=== PATIENT | female | born 1990 | race Caucasian/White ===

== ENCOUNTER 2018-09-26 23:45 | Inpatient (IN) | payer OTHER ==
[~2018-09-26] VITALS: Ht 165.1 cm; Wt 127.0 kg
[2018-09-27 02:00] VITALS: BP 120/57; PULSE 77; RESP 18
[2018-09-27 02:03] VITALS: Ht 165.1 cm; Wt 127.0 kg
[2018-09-27] MEDS ORDERED: ONDANSETRON 4 MG INJ IV PRN ×2 (02:30→12:00)
[2018-09-27] MEDS ORDERED: ALBUTEROL/IPRATROPIUM (NEB) 3 ML AMP HHN PRN (02:30)
[2018-09-27] MEDS ORDERED: HYDROCODONE/APAP (5/325) TAB PO PRN (02:30)
[2018-09-27] MEDS ORDERED: NACL 0.9% 3 ML SYG IV SCH (02:30)
--- NOTE | 2018-09-27 02:41 | HP ---
Date/Time of Note Date/Time of Note DATE: 09/27/18 TIME: 02:38 Assessment/Plan VTE Prophylaxis Pharmacological prophylaxis: heparin Assessment/Plan Assessment/Plan 1. Meningitis, most likely viral -Isolation -Acyclovir, ceftriaxone and vancomycin -We will obtain culture results from LP that was done at outside facility -ID consult 2. Hypertension: BP within goal 3. History of gestational diabetes: Check A1c 4. History of migraine headache: PRN pain meds HPI/ROS Admit Date/Time Admit Date/Time Sep 27, 2018 at 01:39 Hx of Present Illness This is a 27-year-old morbidly obese female with a history of hypertension, migraine headache, gestational diabetes who initially presented on outside hospital complaining of headache and subjective fever. Headache is diffuse for the most part. She said she has not had a headache for a long time. Head CT at outside facility was negative for acute findings. LP consistent with meningitis with 300 WBCs with 90% lymphocytes only 3 RBCs. Gram stain without organism and culture pending. Patient was transferred to [facility] for insurance reasons. She had a temp of 100.7 at the outside facility. PMH/Family/Social Past Medical History Medications Current Medications IV Flush (NS 3 ml) 3 ml PER PROTOCOL IV ; Start 09/27/18 at 02:30; Status UNV Ondansetron HCl (Zofran Inj) 4 mg Q6H PRN IV NAUSEA AND/OR VOMITING; Start 09/27/18 at 02:30; Status UNV Acetaminophen (Tylenol Tab) 650 mg Q6H PRN PO PAIN LEVEL 1-3 OR FEVER; Start 09/27/18 at 02:30; Status UNV Acetaminophen/ Hydrocodone Bitart ([place] (5/325)) 1 tab Q6H PRN PO MODERATE PAIN LEVEL 4-6; Start 09/27/18 at 02:30; Status UNV Acetaminophen/ Hydrocodone Bitart ([place] (5/325)) 2 tab Q6H PRN PO SEVERE PAIN LEVEL 7-10; Start 09/27/18 at 02:30; Status UNV Albuterol/ Ipratropium (Duoneb) 3 ml Q2H RESP THERAPY PRN HHN SHORTNESS OF BREATH; Start 09/27/18 at 02:30; Status UNV Acyclovir 500 mg/ Dextrose 100 ml @ 100 mls/hr Q8 IVPB ; Start 09/27/18 at 06:00; Status UNV Ceftriaxone Sodium 50 ml @ 100 mls/hr DAILY IVPB ; Start 09/27/18 at 09:00; Status UNV Vancomycin HCl (Vanco Iv Per Pharmacy) VANCOMYCIN PER PHARMACY PER PROTOCOL XX ; Start 09/27/18 at 09:00; Status UNV Coded Allergies: No Known Drug Allergy (Verified Allergy, Unknown, 09/27/18) Social History Smoking Status: Never smoker Exam/Review of Systems Vital Signs Vitals Vital Signs Date Temp Pulse Resp B/P (MAP) Pulse Ox O2 O2 Flow FiO2 Time Delivery Rate 09/27/18 98.0 77 18 120/57 93 Room Air 02:00 (78) Exam Exam Constitutional: other (no acute distress) Head: normocephalic Respiratory: other (slight decreased at bases) Cardiovascular: regular rate and rhythm Gastrointestinal: soft Extremities: normal pulses PMH/Family/Social Past Medical History Medical History: other (see hpi) Coded Allergies: No Known Drug Allergy (Verified Allergy, Unknown, 05/12/16) Past Surgical History Past Surgical Hx: other (see hpi) Family History Significant Family History: no pertinent family hx Social History Alcohol Use: other Smoking Status: Unknown if ever smoked Drug Use: other MEENU JAIMES MD Sep 27, 2018 02:41
[2018-09-27] MEDS ORDERED: VANCOMYCIN 1.5 GM in SOD CHLORIDE 0.9% 250 ML IVPB ONE (03:00)
[2018-09-27] MEDS: ACYCLOVIR 500 MG in DEXTROSE 5% 100 ML IVPB SCH ×2 (05:03→13:15)
[2018-09-27 08:16] VITALS: BP 91/54; PULSE 56; RESP 20
[2018-09-27] MEDS ORDERED: VANCOMYCIN IV PER PHARMACY XX SCH (09:00)
[2018-09-27] MEDS ORDERED: CEFTRIAXONE 1 GM/50 ML (PMX) 50 ML IVPB SCH (09:00)
[2018-09-27] MEDS: CEFTRIAXONE 2 GM/NS 50 ML IVPB SCH ×2 (09:41→20:40)
[2018-09-27] MEDS: ACETAMINOPHEN 325 MG TAB PO PRN ×2 (09:47→17:05)
[2018-09-27 10:00] VITALS: BP 96/58; PULSE 62
--- NOTE | 2018-09-27 11:43 | PN ---
Date/Time of Note Date/Time of Note DATE: 09/27/18 TIME: 11:40 Assessment/Plan VTE Prophylaxis Risk score (from Nsg)>0 risk: 2 SCD applied (from Ns): Yes SCD contraindicated: low risk/ambulating Pharmacological prophylaxis: NA/contraindicated Pharm contraindication: low risk/ambulating Lines/Catheters IV Catheter Type (from [facility]): Saline Lock Assessment/Plan Hospital Course Assessment and plan 1. Acute headache low-grade fever, mild stable rule out meningitis. I believe LP was done in [place] [facility]. I will follow-up on tests. 2. Hypertension 3. Metabolic syndrome, gestational diabetes, overweight hypertension 4. Migraines? Subjective: Few days of headache. Worse yesterday. Achy feels like her around her head. Not described as pounding. Not really uncomfortable with light or sound. +1 or 2 episodes of nausea vomiting. No hematemesis. No bug bites travel sinus upper respiratory issues. No earaches. No focal deficits loss of speech or vision. Does not take OCPs. No head injury. Last headache was about 5 years ago and was told she has and she thinks it was due to migraines. She does not get headaches that often. This headache is fairly similar but more ongoing for headache 5 years ago. Present he feels a little better. No neck stiffness or rigidity Objective: Vital signs stable Physical exam No pallor icterus adenopathy sinus tenderness or droop. No tragus. No neck tenderness Regular no murmur gallop Clear Benign No edema No appreciated Kerning's/ Babinski sign Result Diagram: 09/27/18 0854 09/27/18 0854 Results 24hrs Laboratory Tests Test 09/27/18 03:22 09/27/18 08:54 Serum HCG, Qualitative NEGATIVE White Blood Count 7.2 Red Blood Count 4.20 Hemoglobin 12.7 Hematocrit 39.3 Mean Corpuscular Volume 93.6 Mean Corpuscular Hemoglobin 30.2 Mean Corpuscular Hemoglobin Concent 32.3 Red Cell Distribution Width 13.2 Platelet Count 255 Mean Platelet Volume 11.1 H Immature Granulocytes % 0.300 Neutrophils % 55.1 Lymphocytes % 37.0 Monocytes % 5.8 Eosinophils % 1.4 Basophils % 0.4 Nucleated Red Blood Cells % 0.0 Immature Granulocytes # 0.020 Neutrophils # 4.0 Lymphocytes # 2.7 Monocytes # 0.4 Eosinophils # 0.1 Basophils # 0.0 Nucleated Red Blood Cells # 0.0 Sodium Level 140 Potassium Level 3.9 Chloride Level 105 Carbon Dioxide Level 27 Anion Gap 8 Blood Urea Nitrogen 9 Creatinine 0.55 Est Glomerular Filtrat Rate mL/min > 60 Glucose Level 120 Hemoglobin A1c 5.8 Calcium Level 8.9 Total Bilirubin 0.3 Direct Bilirubin 0.00 Indirect Bilirubin 0.3 Aspartate Amino Transf (AST/SGOT) 20 Alanine Aminotransferase (ALT/SGPT) 24 Alkaline Phosphatase 83 Total Protein 7.8 Albumin 4.0 Globulin 3.80 H Albumin/Globulin Ratio 1.05 Exam/Review of Systems Vital Signs Vitals Vital Signs Date Temp Pulse Resp B/P (MAP) Pulse Ox O2 O2 Flow FiO2 Time Delivery Rate 09/27/18 62 96/58 (71) 10:00 09/27/18 97.8 20 97 Room Air 08:16 Intake and Output 09/26/18 09/26/18 09/27/18 1515:00 23:00 07:00 IntakeIntake Total 100 ml BalanceBalance 100 ml Medications Medications Current Medications IV Flush (NS 3 ml) 3 ml PER PROTOCOL IV ; Start 09/27/18 at 02:30 Ondansetron HCl (Zofran Inj) 4 mg Q6H PRN IV NAUSEA AND/OR VOMITING; Start 09/27/18 at 02:30 Acetaminophen (Tylenol Tab) 650 mg Q6H PRN PO PAIN LEVEL 1-3 OR FEVER Last administered on 09/27/18at 09:47; Admin Dose 650 MG; Start 09/27/18 at 02:30 Acetaminophen/ Hydrocodone Bitart ([place] (5/325)) 1 tab Q6H PRN PO MODERATE PAIN LEVEL 4-6; Start 09/27/18 at 02:30 Acetaminophen/ Hydrocodone Bitart ([place] (5/325)) 2 tab Q6H PRN PO SEVERE PAIN LEVEL 7-10; Start 09/27/18 at 02:30 Albuterol/ Ipratropium (Duoneb) 3 ml Q2H RESP THERAPY PRN HHN SHORTNESS OF BREATH; Start 09/27/18 at 02:30 Acyclovir 500 mg/ Dextrose 100 ml @ 100 mls/hr Q8 IVPB Last administered on 09/27/18at 05:03; Admin Dose 100 MLS/HR; Start 09/27/18 at 06:00 Vancomycin HCl (Vanco Iv Per Pharmacy) VANCOMYCIN PER PHARMACY PER PROTOCOL XX ; Start 09/27/18 at 09:00 Ceftriaxone Sodium 50 ml @ 100 mls/hr Q12H IVPB Last administered on 09/27/18at 09:41; Admin Dose 100 MLS/HR; Start 09/27/18 at 09:00 AMPARO CLEANING MD Sep 27, 2018 11:43
[2018-09-27] MEDS ORDERED: DOCUSATE SODIUM 100 MG CAP PO PRN (12:00)
[2018-09-27 14:41] VITALS: BP 104/54; PULSE 89; RESP 20
[2018-09-27] MEDS: VANCOMYCIN 1.25 GM in SOD CHLORIDE 0.9% 250 ML IVPB SCH ×2 (15:34→23:04)
[2018-09-27 19:46] VITALS: BP 113/67; PULSE 93; RESP 17
--- NOTE | 2018-09-27 21:21 | CONS ---
DATE OF ADMISSION: 09/27/2018 DATE OF CONSULTATION: 09/27/2018 REASON FOR CONSULTATION: Antibiotic management. HISTORY OF PRESENT ILLNESS: Farhana Perez is a 27-year-old female who has numerous problems and comes in with symptoms of meningitis. Her problems include: 1. Morbid obesity. 2. Hypertension. 3. Migraine headaches. 4. Gestational diabetes. The patient presented from an outside hospital complaining of headaches and subjective fever. The he adache was diffuse. CT scan at the outside facility was negative. showed 300 white cells with 90% lymphocytes only 3 RBCs. Gram stain without organisms. Cultures pending. She was transferred to [facility] with a temperature of 100.7. On admission, she was afebrile. She wa s placed on vancomycin and ceftriaxone. White count 7.2, H and H of 12.7 and 39.3, platelet count 25 5,000. Results of her blood work were unremarkable. She was started on acyclovir, Rocephin in the [facility]. PAST MEDICAL HISTORY: as outlined. FAMILY HISTORY: Noncontributory. SOCIAL HISTORY: She does not smoke, drink or abuse drugs. ALLERGIES: NONE TO PENICILLIN, SULFA OR FOODS. MEDICATIONS: Per chart. REVIEW OF SYSTEMS: As per HPI. PHYSICAL EXAMINATION: GENERAL: The patient is a morbidly obese female who is awake, responsive, in no acute distress. VITAL SIGNS: Stable. She is afebrile. SKIN: Without generalized rash. HEENT: Head normocephalic, atraumatic, within normal limits. NECK: Supple, with no meningismus. BACK: There is slight pain on flexion, but no stiffness. CHEST: Decreased breath sounds at the bases. HEART: Without murmur or gallop. ABDOMEN: Soft, nontender, without organosplenomegaly or masses. EXTREMITIES: Without cyanosis, clubbing, or edema. RECTAL AND GENITAL: Deferred. NEUROLOGIC: The patient is alert and oriented x3. Cranial nerves grossly intact. Sensory and motor within normal limits. No focal neurological abnormality. IMPRESSION AND PLAN: The patient has a viral meningitis. I doubt that she has anything related to h erpes. She is currently on Acyclovir, vancomycin and ceftriaxone. We will await the culture reports . I will dictate my findings to the hospitalist. Dictated By: JEFFERY VAUGHN MD, JD/MACK Conf#: [id number] [facility]#: [id number] CC: MEENU JAIMES MD;*End*
[2018-09-27] MEDS: DEXTROSE 5% IVPB SCH (21:33)
[2018-09-27] MEDS: ACYCLOVIR IVPB SCH (21:33)
[2018-09-28] MEDS: HYDROCODONE/APAP (5/325) TAB PO PRN ×3 (00:40→20:27)
[2018-09-28 01:54] VITALS: BP 98/51; PULSE 73; RESP 18
[2018-09-28] MEDS: DEXTROSE 5% IVPB SCH ×3 (05:39→22:10)
[2018-09-28] MEDS: ACYCLOVIR IVPB SCH ×3 (05:39→22:10)
[2018-09-28] MEDS: VANCOMYCIN 1.25 GM in SOD CHLORIDE 0.9% 250 ML IVPB SCH ×3 (07:24→23:54)
[2018-09-28 07:25] VITALS: BP 96/54; PULSE 62; RESP 16
[2018-09-28] MEDS: CEFTRIAXONE 2 GM/NS 50 ML IVPB SCH ×2 (10:27→20:27)
[2018-09-28 11:14] VITALS: BP 142/80; PULSE 70
--- NOTE | 2018-09-28 13:02 | PN ---
Date/Time of Note Date/Time of Note DATE: 09/28/18 TIME: 13:01 Assessment/Plan VTE Prophylaxis Risk score (from Nsg)>0 risk: 2 SCD applied (from Nsg): Yes SCD contraindicated: low risk/ambulating Pharmacological prophylaxis: LMWH Lines/Catheters IV Catheter Type (from Nrsg): Saline Lock Assessment/Plan Hospital Course Assessment and plan 1. Acute headache low-grade fever, mild stable treat viral meningitis. I believe LPCT brain was done in [place] [facility]. I will follow-up on tests. 2. Hypertension 3. Metabolic syndrome, gestational diabetes, overweight hypertension 4. Migraines? Subjective: /3 few days of headache. Worse yesterday. Achy feels like her around her head. Not described as pounding. Not really uncomfortable with light or sound. +1 or 2 episodes of nausea vomiting. No hematemesis. No bug bites travel sinus upper respiratory issues. No earaches. No focal deficits loss of speech or vision. Does not take OCPs. No head injury. Last headache was about 5 years ago and was told she has and she thinks it was due to migraines. She does not get headaches that often. This headache is fairly similar but more ongoing for headache 5 years ago. Present he feels a little better. No neck stiffness or rigidity 09/28: Headache about the same. No loss of speech vision fever nausea vomiting or neck rigidity. Objective: Vital signs stable Physical exam No pallor icterus adenopathy sinus tenderness or droop. No tragus. No neck tenderness Regular no murmur gallop Clear Benign No edema No appreciated Kerning's/ Babinski sign Result Diagram: 09/28/18 0449 09/28/189 Results 24hrs Laboratory Tests Test 09/28/18 04:49 White Blood Count 7.0 Red Blood Count 3.98 L Hemoglobin 12.1 Hematocrit 36.1 L Mean Corpuscular Volume 90.7 Mean Corpuscular Hemoglobin 30.4 Mean Corpuscular Hemoglobin Concent 33.5 Red Cell Distribution Width 13.1 Platelet Count 240 Mean Platelet Volume 10.9 H Immature Granulocytes % 0.300 Neutrophils % 56.8 Lymphocytes % 34.6 Monocytes % 5.9 Eosinophils % 2.0 Basophils % 0.4 Nucleated Red Blood Cells % 0.0 Immature Granulocytes # 0.020 Neutrophils # 4.0 Lymphocytes # 2.4 Monocytes # 0.4 Eosinophils # 0.1 Basophils # 0.0 Nucleated Red Blood Cells # 0.0 Prothrombin Time 14.2 Prothrombin Time Ratio 1.1 INR International Normalized Ratio 1.09 Sodium Level 141 Potassium Level 4.2 Chloride Level 106 Carbon Dioxide Level 27 Anion Gap 8 Blood Urea Nitrogen 11 Creatinine 0.62 Est Glomerular Filtrat Rate mL/min > 60 Glucose Level 111 Calcium Level 8.6 Phosphorus Level 3.4 Magnesium Level 2.1 Thyroid Stimulating Hormone (TSH) 2.480 Exam/Review of Systems Vital Signs Vitals Vital Signs Date Temp Pulse Resp B/P (MAP) Pulse Ox O2 O2 Flow FiO2 Time Delivery Rate 09/28/18 70 142/80 11:14 (100) 09/28/18 99.1 16 92 Room Air 07:25 Intake and Output 09/27/18 09/27/18 09/28/18 1515:00 23:00 07:00 IntakeIntake Total 1180 ml 300 ml 850 ml BalanceBalance 1180 ml 300 ml 850 ml Medications Medications Current Medications IV Flush (NS 3 ml) 3 ml PER PROTOCOL IV ; Start 09/27/18 at 02:30 Acetaminophen (Tylenol Tab) 650 mg Q6H PRN PO PAIN LEVEL 1-3 OR FEVER Last a dministered on 09/27/18at 17:05; Admin Dose 650 MG; Start 09/27/18 at 02:30 Acetaminophen/ Hydrocodone Bitart ([place] (5/325)) 1 tab Q6H PRN PO MODERATE PAIN LEVEL 4-6 Last administered on 09/28/18at 10:28; Admin Dose 1 TAB; Start 09/27/18 at 02:30 Acetaminophen/ Hydrocodone Bitart ([place] (5/325)) 2 tab Q6H PRN PO SEVERE PAIN LEVEL 7-10; Start 09/27/18 at 02:30 Albuterol/ Ipratropium (Duoneb) 3 ml Q2H RESP THERAPY PRN HHN SHORTNESS OF BREATH; Start 09/27/18 at 02:30 Vancomycin HCl (Vanco Iv Per Pharmacy) VANCOMYCIN PER PHARMACY PER PROTOCOL XX ; Start 09/27/18 at 09:00 Ceftriaxone Sodium 50 ml @ 100 mls/hr Q12H IVPB Last administered on 09/28/18at 10:27; Admin Dose 100 MLS/HR; Start 09/27/18 at 09:00 Ondansetron HCl (Zofran Inj) 4 mg Q4H PRN IV NAUSEA AND/OR VOMITING; Start 09/27/18 at 12:00 Enoxaparin Sodium (Lovenox) 40 mg DAILY SC ; Start 09/30/18 at 09:00 Docusate Sodium (Colace) 200 mg BID PRN PO CONSTIPATION; Start 09/27/18 at 12:00 Clonidine (Catapres) 0.1 mg Q4H PRN PO ELEVATED SYSTOLIC BP; Start 09/27/18 at 12:00 Vancomycin HCl 1.25 gm/Sodium Chloride 250 ml @ 83.333 mls/ hr Q8H IVPB Last administered on 09/28/18at 07:24; Admin Dose 83.333 MLS/HR; Start 09/27/18 at 14:30 Miscellaneous Information (*Rx Drug Level Order Reminder*) 1 ONCE ONCE XX ; Start 09/28/18 at 13:30; Stop 09/28/18 at 13:31 Acyclovir 850 mg/ Dextrose/Water 150 ml @ 100 mls/hr Q8 IVPB Last administered on 09/28/18at 05:39; Admin Dose 100 MLS/HR; Start 09/27/18 at 22:00 AMPARO CLEANING MD Sep 28, 2018 13:02
[2018-09-28 14:30] VITALS: BP 128/66; PULSE 83; RESP 20
[2018-09-28] MEDS: ACETAMINOPHEN 325 MG TAB PO PRN (15:16)
--- NOTE | 2018-09-28 15:52 | CONS ---
Date/Time of Note Date/Time of Note DATE: 09/28/18 TIME: 15:51 Assessment/Plan Assessment/Plan Hospital Course Patient is alert feels better still with intermittent headaches she is in no distress, no fevers WBC 7, no shift no bands BUN 11 creatinine 0.62 Antimicrobials: Acyclovir, Vanco, Rocephin Physical examination: Obese well-developed middle-aged woman who is alert in no distress. Head atraumatic normocephalic sclera nonicteric neck is supple chest rise symmetrical breath sounds clear. Heart: S1-S2 abdomen soft bowel sounds present extremities without cyanosis Assessment: 1. Viral meningitis 2. Morbid obesity 3. Hypertension Plan: Patient is doing better we will continue her on current antibiotics, and follow final cultures Result Diagram: 09/28/1844809/28/18448 Results 24hrs Laboratory Tests Test 09/28/18 04:49 09/28/18 13:25 White Blood Count 7.0 Red Blood Count 3.98 L Hemoglobin 12.1 Hematocrit 36.1 L Mean Corpuscular Volume 90.7 Mean Corpuscular Hemoglobin 30.4 Mean Corpuscular Hemoglobin Concent 33.5 Red Cell Distribution Width 13.1 Platelet Count 240 Mean Platelet Volume 10.9 H Immature Granulocytes % 0.300 Neutrophils % 56.8 Lymphocytes % 34.6 Monocytes % 5.9 Eosinophils % 2.0 Basophils % 0.4 Nucleated Red Blood Cells % 0.0 Immature Granulocytes # 0.020 Neutrophils # 4.0 Lymphocytes # 2.4 Monocytes # 0.4 Eosinophils # 0.1 Basophils # 0.0 Nucleated Red Blood Cells # 0.0 Prothrombin Time 14.2 Prothrombin Time Ratio 1.1 INR International Normalized Ratio 1.09 Sodium Level 141 Potassium Level 4.2 Chloride Level 106 Carbon Dioxide Level 27 Anion Gap 8 Blood Urea Nitrogen 11 Creatinine 0.62 Est Glomerular Filtrat Rate mL/min > 60 Glucose Level 111 Calcium Level 8.6 Phosphorus Level 3.4 Magnesium Level 2.1 Thyroid Stimulating Hormone (TSH) 2.480 Vancomycin Level Trough 14.1 Consultation Date/Type/Reason Admit Date/Time Sep 27, 2018 at 01:39 Initial Consult Date Type of Consult id Exam/Review of Systems Vital Signs Vitals Vital Signs Date Temp Pulse Resp B/P (MAP) Pulse Ox O2 O2 Flow FiO2 Time Delivery Rate 09/28/18 98.7 83 20 128/66 95 Room Air 14:30 (86) Intake and Output 09/27/18 09/27/18 09/28/18 1515:00 23:00 07:00 IntakeIntake Total 1180 ml 300 ml 850 ml BalanceBalance 1180 ml 300 ml 850 ml Medications Medications Current Medications IV Flush (NS 3 ml) 3 ml PER PROTOCOL IV ; Start 09/27/18 at 02:30 Acetaminophen (Tylenol Tab) 650 mg Q6H PRN PO PAIN LEVEL 1-3 OR FEVER Last administered on 09/28/18at 15:16; Admin Dose 650 MG; Start 09/27/18 at 02:30 Acetaminophen/ Hydrocodone Bitart ([place] (5/325)) 1 tab Q6H PRN PO MODERATE PAIN LEVEL 4-6 Last administered on 09/28/18at 10:28; Admin Dose 1 TAB; Start 09/27/18 at 02:30 Acetaminophen/ Hydrocodone Bitart ([place] (5/325)) 2 tab Q6H PRN PO SEVERE PAIN LEVEL 7-10; Start 09/27/18 at 02:30 Albuterol/ Ipratropium (Duoneb) 3 ml Q2H RESP THERAPY PRN HHN SHORTNESS OF BREATH; Start 09/27/18 at 02:30 Vancomycin HCl (Vanco Iv Per Pharmacy) VANCOMYCIN PER PHARMACY PER PROTOCOL XX ; Start 09/27/18 at 09:00 Ceftriaxone Sodium 50 ml @ 100 mls/hr Q12H IVPB Last administered on 09/28/18at 10:27; Admin Dose 100 MLS/HR; Start 09/27/18 at 09:00 Ondansetron HCl (Zofran Inj) 4 mg Q4H PRN IV NAUSEA AND/OR VOMITING; Start 09/27/18 at 12:00 Enoxaparin Sodium (Lovenox) 40 mg DAILY SC ; Start 09/30/18 at 09:00 Docusate Sodium (Colace) 200 mg BID PRN PO CONSTIPATION; Start 09/27/18 at 12:00 Clonidine (Catapres) 0.1 mg Q4H PRN PO ELEVATED SYSTOLIC BP; Start 09/27/18 at 12:00 Vancomycin HCl 1.25 gm/Sodium Chloride 250 ml @ 83.333 mls/ hr Q8H IVPB Last administered on 09/28/18at 15:17; Admin Dose 83.333 MLS/HR; Start 09/27/18 at 14:30 Acyclovir 850 mg/ Dextrose/Water 150 ml @ 100 mls/hr Q8 IVPB Last administered on 09/28/18at 13:20; Admin Dose 100 MLS/HR; Start 09/27/18 at 22:00 JAQUELINE SALMON NP Sep 28, 2018 15:52
[2018-09-28 20:10] VITALS: BP 111/73; PULSE 74; RESP 18
[2018-09-29 02:10] VITALS: BP 109/69; PULSE 78; RESP 18
[2018-09-29] MEDS: DEXTROSE 5% IVPB SCH ×3 (05:17→22:25)
[2018-09-29] MEDS: ACYCLOVIR IVPB SCH ×3 (05:17→22:25)
[2018-09-29] MEDS: VANCOMYCIN 1.25 GM in SOD CHLORIDE 0.9% 250 ML IVPB SCH ×2 (05:17→14:40)
[2018-09-29 08:12] VITALS: BP 105/72; PULSE 72; RESP 16
[2018-09-29] MEDS: HYDROCODONE/APAP (5/325) TAB PO PRN ×2 (08:59→18:35)
[2018-09-29] MEDS: CEFTRIAXONE 2 GM/NS 50 ML IVPB SCH ×2 (10:17→20:34)
[2018-09-29 14:23] VITALS: BP 117/73; PULSE 70; RESP 18
--- NOTE | 2018-09-29 17:21 | PN ---
Date/Time of Note Date/Time of Note DATE: 09/29/18 TIME: 17:20 Assessment/Plan VTE Prophylaxis Risk score (from Nsg)>0 risk: 2 SCD applied (from Nsg): Yes SCD contraindicated: low risk/ambulating Pharmacological prophylaxis: LMWH Lines/Catheters IV Catheter Type (from Nrsg): Saline Lock Assessment/Plan Hospital Course Assessment and plan 1. Acute headache/ low-grade fever, stable treat viral meningitis. I believe LPCT brain was done in [place] [facility]. I will follow-up on tests. 2. Hypertension 3. Metabolic syndrome, gestational diabetes, overweight hypertension 4. Migraines? Subjective: /3 few days of headache. Worse yesterday. Achy feels like her around her head. Not described as pounding. Not really uncomfortable with light or sound. +1 or 2 episodes of nausea vomiting. No hematemesis. No bug bites travel sinus upper respiratory issues. No earaches. No focal deficits loss of speech or vision. Does not take OCPs. No head injury. Last headache was about 5 years ago and was told she has and she thinks it was due to migraines. She does not get headaches that often. This headache is fairly similar but more ongoing for headache 5 years ago. Present he feels a little better. No neck stiffness or rigidity 09/28: Headache about the same. No loss of speech vision fever nausea vomiting or neck rigidity. 09/29: Feels much better. Now has dysuria constipation. Objective: Vital signs stable Physical exam No pallor icterus adenopathy sinus tenderness or droop. No tragus. No neck tenderness Regular no murmur gallop Clear Benign No edema No appreciated Kerning's/ Babinski sign Result Diagram: 09/28/18 0449 09/28/18 044 Exam/Review of Systems Vital Signs Vitals Vital Signs Date Temp Pulse Resp B/P (MAP) Pulse Ox O2 O2 Flow FiO2 Time Delivery Rate 09/29/18 98.3 70 18 117/73 98 14:23 (88) 09/28/18 Room Air 14:30 Intake and Output 09/28/18 09/28/18 09/29/18 1515:00 23:00 07:00 IntakeIntake Total 1360 ml 1010 ml 790 ml BalanceBalance 1360 ml 1010 ml 790 ml Medications Medications Current Medications IV Flush (NS 3 ml) 3 ml PER PROTOCOL IV ; Start 09/27/18 at 02:30 Acetaminophen (Tylenol Tab) 650 mg Q6H PRN PO PAIN LEVEL 1-3 OR FEVER Last administered on 09/28/18 15:16; Admin Dose 650 MG; Start 09/27/18 at 02:30 Acetaminophen/ Hydrocodone Bitart ([place] (5/325)) 1 tab Q6H PRN PO MODERATE PAIN LEVEL 4-6 Last administered on 09/29/18 08:59; Admin Dose 1 TAB; Start 09/27/18 at 02:30 Acetaminophen/ Hydrocodone Bitart ([place] (5/325)) 2 tab Q6H PRN PO SEVERE PAIN LEVEL 7-10; Start 09/27/18 at 02:30 Albuterol/ Ipratropium (Duoneb) 3 ml Q2H RESP THERAPY PRN HHN SHORTNESS OF BREATH; Start 09/27/18 at 02:30 Vancomycin HCl (Vanco Iv Per Pharmacy) VANCOMYCIN PER PHARMACY PER PROTOCOL XX ; Start 09/27/18 at 09:00 Ceftriaxone Sodium 50 ml @ 100 mls/hr Q12H IVPB Last administered on 09/29/18 10:17; Admin Dose 100 MLS/HR; Start 09/27/18 at 09:00 Ondansetron HCl (Zofran Inj) 4 mg Q4H PRN IV NAUSEA AND/OR VOMITING Last administered on 09/28/18 19:10; Admin Dose 4 MG; Start 09/27/18 at 12:00 Enoxaparin Sodium (Lovenox) 40 mg DAILY SC ; Start 09/30/18 at 09:00 Docusate Sodium (Colace) 200 mg BID PRN PO CONSTIPATION; Start 09/27/18 at 12:00 Clonidine (Catapres) 0.1 mg Q4H PRN PO ELEVATED SYSTOLIC BP; Start 09/27/18 at 12:00 Vancomycin HCl 1.25 gm/Sodium Chloride 250 ml @ 83.333 mls/ hr Q8H IVPB Last administered on 09/29/18 14:40; Admin Dose 83.333 MLS/HR; Start 09/27/18 at 14:30 Acyclovir 850 mg/ Dextrose/Water 150 ml @ 100 mls/hr Q8 IVPB Last administered on 1/5/19at 14:40; Admin Dose 100 MLS/HR; Start 09/27/18 at 22:00 AMPARO CLEANING MD Sep 29, 2018 17:21
--- NOTE | 2018-09-29 19:19 | CONS ---
Date/Time of Note Date/Time of Note DATE: 09/29/18 TIME: 19:18 Assessment/Plan Assessment/Plan Hospital Course Patient is alert feels better, no fevers Antimicrobials: Acyclovir, Vanco, Rocephin Physical examination: Obese well-developed middle-aged woman who is alert in no distress. Head atraumatic normocephalic sclera nonicteric neck is supple chest rise symmetrical breath sounds clear. Heart: S1-S2 abdomen soft bowel sounds present extremities without cyanosis Assessment: 1. Viral meningitis 2. Morbid obesity 3. Hypertension Plan: Patient is doing better, continue present care, await for CSF cx's from another facility, ok to dc isolation Result Diagram: 09/28/18 0449 09/28/18 0449 Consultation Date/Type/Reason Admit Date/Time Sep 27, 2018 at 01:39 Initial Consult Date Type of Consult id Exam/Review of Systems Vital Signs Vitals Vital Signs Date Temp Pulse Resp B/P (MAP) Pulse Ox O2 O2 Flow FiO2 Time Delivery Rate 09/29/18 98.3 70 18 117/73 98 14:23 (88) 09/28/18 Room Air 14:30 Intake and Output 09/28/18 09/28/18 09/29/18 1515:00 23:00 07:00 IntakeIntake Total 1360 ml 1010 ml 790 ml BalanceBalance 1360 ml 1010 ml 790 ml Medications Medications Current Medications IV Flush (NS 3 ml) 3 ml PER PROTOCOL IV ; Start 09/27/18 at 02:30 Acetaminophen (Tylenol Tab) 650 mg Q6H PRN PO PAIN LEVEL 1-3 OR FEVER Last administered on 09/28/18at 15:16; Admin Dose 650 MG; Start 09/27/18 at 02:30 Acetaminophen/ Hydrocodone Bitart (Amelia (5/325)) 1 tab Q6H PRN PO MODERATE PAIN LEVEL 4-6 Last administered on 09/29/18at 18:35; Admin Dose 1 TAB; Start 09/27/18 at 02:30 Acetaminophen/ Hydrocodone Bitart (Amelia (5/325)) 2 tab Q6H PRN PO SEVERE PAIN LEVEL 7-10; Start 09/27/18 at 02:30 Albuterol/ Ipratropium (Duoneb) 3 ml Q2H RESP THERAPY PRN HHN SHORTNESS OF MACK ATH; Start 09/27/18 at 02:30 Vancomycin HCl (Vanco Iv Per Pharmacy) VANCOMYCIN PER PHARMACY PER PROTOCOL XX ; Start 09/27/18 at 09:00 Ceftriaxone Sodium 50 ml @ 100 mls/hr Q12H IVPB Last administered on 09/29/18at 10:17; Admin Dose 100 MLS/HR; Start 09/27/18 at 09:00 Ondansetron HCl (Zofran Inj) 4 mg Q4H PRN IV NAUSEA AND/OR VOMITING Last administered on 09/28/18at 19:10; Admin Dose 4 MG; Start 09/27/18 at 12:00 Enoxaparin Sodium (Lovenox) 40 mg DAILY SC ; Start 09/30/18 at 09:00 Docusate Sodium (Colace) 200 mg BID PRN PO CONSTIPATION; Start 09/27/18 at 12:00 Clonidine (Catapres) 0.1 mg Q4H PRN PO ELEVATED SYSTOLIC BP; Start 09/27/18 at 12:00 Vancomycin HCl 1.25 gm/Sodium Chloride 250 ml @ 83.333 mls/ hr Q8H IVPB Last administered on 09/29/18at 14:40; Admin Dose 83.333 MLS/HR; Start 09/27/18 at 14:30 Acyclovir 850 mg/ Dextrose/Water 150 ml @ 100 mls/hr Q8 IVPB Last administered on 09/29/18at 14:40; Admin Dose 100 MLS/HR; Start 09/27/18 at 22:00 JAQUELINE SALMON NP Sep 29, 2018 19:19
[2018-09-29 20:00] VITALS: BP 98/53; PULSE 72; RESP 18
[2018-09-30] MEDS: HYDROCODONE/APAP (5/325) TAB PO PRN (00:41)
[2018-09-30] MEDS: VANCOMYCIN 1.25 GM in SOD CHLORIDE 0.9% 250 ML IVPB SCH ×2 (00:41→05:25)
[2018-09-30 02:00] VITALS: BP 90/51; PULSE 66; RESP 18
[2018-09-30] MEDS: DEXTROSE 5% IVPB SCH (05:26)
[2018-09-30] MEDS: ACYCLOVIR IVPB SCH (05:26)
[2018-09-30 08:41] VITALS: BP 125/65; PULSE 58; RESP 18
[2018-09-30] MEDS ORDERED: ENOXAPARIN 40 MG/0.4 ML SYG SC SCH (09:00)
[2018-09-30] MEDS: CEFTRIAXONE 2 GM/NS 50 ML IVPB SCH (11:48)
--- NOTE | 2018-09-30 12:10 | CONS ---
Date/Time of Note Date/Time of Note DATE: 09/30/18 TIME: 12:03 Assessment/Plan Assessment/Plan Result Diagram: 09/28/18 0449 09/28/18 0449 Consultation Date/Type/Reason Admit Date/Time Sep 27, 2018 at 01:39 Initial Consult Date SUBJECTIVE: 27 y/o female being in isolation room treating for viral meningitis. Sleepy today. No fevers. VS: stable T:98.6 LABS: Reviewed. none today MICROBIOLOGY: blood cultures are negative x2. Antimicrobials: Acyclovir, Vanco, Rocephin Physical examination: GEN: Obese well-developed middle-aged woman who is alert in no distress. HENT: atraumatic normocephalic sclera nonicteric neck is supple CHEST: rise is symmetrical, breath sounds clear. HEART: S1-S2 ABDOMEN: soft bowel sounds present EXT: no cyanosis Assessment: 1. Viral meningitis 2. Morbid obesity 3. Hypertension Plan: Patient is gradually improving. Ok to dc isolation. Final herpes culture is pending. Possible D/C planning with PO Acyclovir. D/W Dr. Wick Exam/Review of Systems Vital Signs Vitals Vital Signs Date Temp Pulse Resp B/P (MAP) Pulse Ox O2 O2 Flow FiO2 Time Delivery Rate 09/30/18 98.6 58 18 125/65 95 08:41 (85) 09/28/18 Room Air 14:30 Intake and Output 09/29/18 09/29/18 09/30/18 1515:00 23:00 07:00 IntakeIntake Total 600 ml 500 ml 850 ml BalanceBalance 600 ml 500 ml 850 ml Medications Medications Current Medications IV Flush (NS 3 ml) 3 ml PER PROTOCOL IV ; Start 09/27/18 at 02:30 Acetaminophen (Tylenol Tab) 650 mg Q6H PRN PO PAIN LEVEL 1-3 OR FEVER Last administered on 09/28/18at 15:16; Admin Dose 650 MG; Start 09/27/18 at 02:30 Acetaminophen/ Hydrocodone Bitart (Burney (5/325)) 1 tab Q6H PRN PO MODERATE PAIN LEVEL 4-6 Last administered on 09/30/18at 00:41; Admin Dose 1 TAB; Start 09/27/18 at 02:30 Acetaminophen/ Hydrocodone Bitart (Burney (5/325)) 2 tab Q6H PRN PO SEVERE PAIN LEVEL 7-10; Start 09/27/18 at 02:30 Albuterol/ Ipratropium (Duoneb) 3 ml Q2H RESP THERAPY PRN HHN SHORTNESS OF BREATH; Start 09/27/18 at 02:30 Vancomycin HCl (Vanco Iv Per Pharmacy) VANCOMYCIN PER PHARMACY PER PROTOCOL XX ; Start 09/27/18 at 09:00 Ceftriaxone Sodium 50 ml @ 100 mls/hr Q12H IVPB Last administered on 09/30/18at 11:48; Admin Dose 100 MLS/HR; Start 09/27/18 at 09:00 Ondansetron HCl (Zofran Inj) 4 mg Q4H PRN IV NAUSEA AND/OR VOMITING Last administered on 09/28/18at 19:10; Admin Dose 4 MG; Start 09/27/18 at 12:00 Enoxaparin Sodium (Lovenox) 40 mg DAILY SC Last administered on 09/30/18at 08:46; Admin Dose 40 MG; Start 09/30/18 at 09:00 Docusate Sodium (Colace) 200 mg BID PRN PO CONSTIPATION; Start 09/27/18 at 12:00 Clonidine (Catapres) 0.1 mg Q4H PRN PO ELEVATED SYSTOLIC BP; Start 09/27/18 at 12:00 Vancomycin HCl 1.25 gm/Sodium Chloride 250 ml @ 83.333 mls/ hr Q8H IVPB Last administered on 09/30/18at 05:25; Admin Dose 83.333 MLS/HR; Start 09/27/18 at 14:30 Acyclovir 850 mg/ Dextrose/Water 150 ml @ 100 mls/hr Q8 IVPB Last administered on 09/30/18at 05:26; Admin Dose 100 MLS/HR; Start 09/27/18 at 22:00 DAVON MART Sep 30, 2018 12:10
--- NOTE | 2018-09-30 12:23 | DS ---
Date/Time of Note Date/Time of Note DATE: 09/30/18 TIME: 12:19 Discharge Summary Admission/Discharge Info Admit Date/Time Sep 27, 2018 at 01:39 Discharge Date/Time Patient Condition: Good Consults Dr Milton Procedures Labs Hx of Present Illness 27-year-old female seen at [facility] with headache. CAT scan LP done. Trejo sferred for continuity with her insurance Hospital Course LP testing showed no organisms or growth; final. Moderate white cells. HSV PCR still pending. Likely viral meningitis stable, improving on acyclovir/supportive care. Dc home on acyclovir, and I will call the patient if testing turns out negative. To visit ID in 1 week MICRO=; [phone] Assessment and plan 1. Acute headache/ low-grade fever, stable treat viral meningitis. LPCT brain was done in [facility]. I will follow-up on tests. 2. Hypertension 3. Metabolic syndrome, gestational diabetes, overweight hypertension 4. Migraines? Subjective: /3 few days of headache. Worse yesterday. Achy feels like her around her head. Not described as pounding. Not really uncomfortable with light or sound. +1 or 2 episodes of nausea vomiting. No hematemesis. No bug bites travel sinus upper respiratory issues. No earaches. No focal deficits loss of speech or vision. Does not take OCPs. No head injury. Last headache was about 5 years ago and was told she has and she thinks it was due to migraines. She does not get headaches that often. This headache is fairly similar but more ongoing for headache 5 years ago. Present he feels a little better. No neck stiffness or rigidity 1/4: Headache about the same. No loss of speech vision fever nausea vomiting or neck rigidity. 1/5: Feels much better. Now has dysuria constipation. 16: Feels much better. Was complaining of left forearm discomfort from iv . No evidence of erythema thrombophlebitis Objective: Vital signs stable Physical exam No pallor sinus tenderness or droop. No tragus. No neck tenderness Regular no m/r/g Clear Benign No edema No appreciated Kerning's/ Babinski sign Primary Care Provider [facility] Time spent on discharge: > 30 minutes AMPARO CLEANING MD Sep 30, 2018 12:23
--- NOTE | 2018-09-30 12:23 | PDOCDIS ---
Discharge Instructions CONDITION [id number] Patient Condition: [id number] Good HOME CARE INSTRUCTIONS: [id number] Special Diet: [id number] Regular ACTIVITY: [id number] Activity Restrictions: [id number] Slowly Increase Activity Do not Drive (no driving if dizzy) FOLLOW UP/APPOINTMENTS Follow-up Plan PCP & Dr Milton 1wk AMPARO CLEANING MD Sep 30, 2018 12:23
[2018-09-30] MEDS ORDERED: ACET325T33 PO (12:25)
[2018-09-30] MEDS ORDERED: ACYC800T PO (12:25)
[2018-09-30] MEDS ORDERED: DOCU-216 PO (12:25)
[2018-09-30] MEDS ORDERED: ACYCLOVIR 800 MG TAB PO SCH (13:00)
== END 2018-09-30 15:22 | disposition home or self-care (01) | DRG 75 ==
LOC: PP2 09-27 01:39
PROVIDERS: ADMIT Internal Medicine; ATTEND Internal Medicine
DX: A87.9 Viral meningitis, unspecified (principal); Z68.42 Body mass index [BMI] 45.0-49.9, adult; I10 Essential (primary) hypertension; E66.01 Morbid (severe) obesity due to excess calories; G43.909 Migraine, unspecified, not intractable, without status migrainosus; E88.81 Metabolic syndrome and other insulin resistance; Z86.32 Personal history of gestational diabetes
CPT/HCPCS: 80048; 80053; 80202; 83036; 83735; 84100; 84443; 84703; 85025; 85610; 87040; 87086; J0133; J0696; J1650; J2405; J3370; J7050